=== PATIENT | male | born 1980 | race African-American/Black ===

== ENCOUNTER 2022-01-25 08:06 | Inpatient (IN) | payer MEDICAID, OTHER ==
[~2022-01-25] VITALS: Ht 167.6 cm; Wt 72.6 kg
[2022-01-25] MEDS ORDERED: SODIUM CHLORIDE 0.9% 1,000 ML IV ONE ×2 (08:30)
[2022-01-25] MEDS ORDERED: ASPIRIN 325MG EC TABLET PO ONE (08:45)
[2022-01-25 09:28] LABS: EOSINOPHILS % 1.4 % (0.0-5.0); HEMATOCRIT. 48.1 % (42.0-52.0); HEMOGLOBIN. 16.2 g/dL (14.0-18.0); LYMPHOCYTES % 25.5 % (20.0-50.0); MEAN CORPUSCULAR HEMOGLOBIN 30.4 pg (28.0-32.0); MEAN CORPUSCULAR VOLUME 90.7 fL (80.0-94.0); MEAN PLATELET VOLUME 8.4 fl (7.4-10.4); NEUTROPHILS % 66.1 % (40.0-76.0); PLATELET 254 x1000/uL (130-400); RED BLOOD CELL COUNT 5.31 mill/uL (4.7-6.1); RED CELL DISTRIBUTION WIDTH 13.8 % (11.6-14.6)
[2022-01-25 09:38] LABS: CHLORIDE 112 mEq/L (98-107)
[2022-01-25] MEDS ORDERED: HYDRALAZINE 20MG/ML VIAL IV PRN (11:15)
[2022-01-25] MEDS ORDERED: NITROGLYCERIN 0.4MG TABLET SL SL PRN (11:15)
[2022-01-25] MEDS ORDERED: FUROSEMIDE 40MG/4ML VIAL IV ONE (11:15)
[2022-01-25] MEDS ORDERED: ONDANSETRON HCL 4MG/2ML INJ IV PRN (11:15)
[2022-01-25] MEDS ORDERED: IPRATROPIUM/ALBUTEROL 0.5-3(2.5)MG/3ML NEB NEB PRN (11:15)
[2022-01-25] MEDS ORDERED: ACETAMINOPHEN 325MG TABLET PO PRN (11:15)
[2022-01-25] MEDS ORDERED: CARVEDILOL 12.5MG TABLET PO ONE (11:15)
[2022-01-25] MEDS: LISINOPRIL 20MG TABLET PO SCH (11:24)
[2022-01-25] MEDS: ENOXAPARIN 40MG/0.4ML SYR SUBCUT SCH (12:11)
[2022-01-25] MEDS ORDERED: AMLODIPINE 5MG TABLET PO SCH (12:15)
[2022-01-25] MEDS: CLONIDINE 0.1MG TABLET PO SCH ×2 (14:47→23:37)
[2022-01-25 15:13] LABS: CREATINE KINASE MB FRACTION 10.9 ng/mL (0.5-3.6)
[2022-01-25 16:07] LABS: *AMPHETAMINES SCREEN URINE PRESUMTIVE POSITIVE (NEGATIVE); CANNABINOID URINE SCREEN NEGATIVE (NEGATIVE); PHENCYCLIDINE URINE SCREEN NEGATIVE (NEGATIVE)
[2022-01-25 16:08] LABS: *BARBITURATES SCREEN URINE NEGATIVE (NEGATIVE); *BENZODIAZEPINES SCREEN URINE NEGATIVE (NEGATIVE); *COCAINE SCREEN URINE NEGATIVE (NEGATIVE); METHADONE URINE SCREEN NEGATIVE (NEGATIVE); OPIATES URINE SCREEN NEGATIVE (NEGATIVE)
[2022-01-25 16:22] LABS: CLARITY URINE CLEAR (CLEAR); COLOR URINE YELLOW (YELLOW); KETONES URINE NEGATIVE (NEGATIVE); LEUKOCYTE ESTERASE URINE NEGATIVE (NEGATIVE); NITRITE URINE NEGATIVE (NEGATIVE); OCCULT BLOOD URINE NEGATIVE (NEGATIVE); PH URINE 5.5 (4.5-8.0); PROTEIN URINE NEGATIVE (NEGATIVE); SPECIFIC GRAVITY URINE 1.021 (1.005-1.030); UROBILINOGEN URINE 0.2 E.U./dL (0.2-1.0)
[2022-01-25] MEDS: FUROSEMIDE 40MG/4ML VIAL IVP SCH (17:45)
[2022-01-25 21:45] VITALS: BP 146/105
[2022-01-25] MEDS: AMLODIPINE 5MG TABLET PO SCH (23:37)
[2022-01-26] VITALS: BP 141/81
[2022-01-26] MEDS: DOCUSATE SODIUM 250MG CAPSULE PO SCH ×3 (00:11→17:00)
[2022-01-26 01:32] LABS: CREATINE KINASE MB FRACTION 8.4 ng/mL (0.5-3.6)
[2022-01-26 04:00] VITALS: BP 159/98
[2022-01-26] MEDS: FUROSEMIDE 40MG/4ML VIAL IVP SCH ×3 (06:09→21:41)
[2022-01-26] MEDS: CLONIDINE 0.1MG TABLET PO SCH ×3 (06:09→21:41)
[2022-01-26 08:00] VITALS: BP 139/81
[2022-01-26] MEDS: LISINOPRIL 20MG TABLET PO SCH (09:23)
[2022-01-26] MEDS: ENOXAPARIN 40MG/0.4ML SYR SUBCUT SCH (09:23)
[2022-01-26] MEDS: AMLODIPINE 5MG TABLET PO SCH ×2 (09:24→20:59)
[2022-01-26] MEDS: HYDRALAZINE HCL 50MG TABLET PO SCH ×3 (09:24→21:41)
[2022-01-26 12:00] VITALS: BP 139/81
[2022-01-26 16:00] VITALS: BP 129/83
[2022-01-26 20:00] VITALS: BP 139/89
[2022-01-27] VITALS: BP 141/98
[2022-01-27 04:00] VITALS: BP 133/83
[2022-01-27] MEDS: HYDRALAZINE HCL 50MG TABLET PO SCH ×2 (05:45→14:35)
[2022-01-27] MEDS: FUROSEMIDE 40MG/4ML VIAL IVP SCH (05:46)
[2022-01-27] MEDS: CLONIDINE 0.1MG TABLET PO SCH ×2 (05:46→14:35)
[2022-01-27 07:29] LABS: BASOPHILS % 1.1 % (0.0-2.0); EOSINOPHILS % 2.5 % (0.0-5.0); HEMATOCRIT. 52.2 % (42.0-52.0); HEMOGLOBIN. 17.4 g/dL (14.0-18.0); LYMPHOCYTES % 32.4 % (20.0-50.0); MEAN CORPUSCULAR HEMOGLOBIN 30.1 pg (28.0-32.0); MEAN CORPUSCULAR VOLUME 90.5 fL (80.0-94.0); MEAN PLATELET VOLUME 8.4 fl (7.4-10.4); MONOCYTES % 7.4 % (2.0-8.0); NEUTROPHILS % 56.6 % (40.0-76.0); PLATELET 251 x1000/uL (130-400); RED BLOOD CELL COUNT 5.77 mill/uL (4.7-6.1); RED CELL DISTRIBUTION WIDTH 13.6 % (11.6-14.6)
[2022-01-27 08:00] VITALS: BP 136/91
[2022-01-27 08:20] LABS: CHLORIDE 108 mEq/L (98-107)
[2022-01-27] MEDS: DOCUSATE SODIUM 250MG CAPSULE PO SCH (08:32)
[2022-01-27] MEDS: LISINOPRIL 20MG TABLET PO SCH (08:33)
[2022-01-27] MEDS: AMLODIPINE 5MG TABLET PO SCH (08:33)
[2022-01-27] MEDS: ENOXAPARIN 40MG/0.4ML SYR SUBCUT SCH (08:33)
[2022-01-27] MEDS ORDERED: POTASSIUM CHLORIDE 20MEQ TABLET SR PO SCH (11:15)
[2022-01-27] MEDS ORDERED: FUROSEMIDE 40MG TABLET PO NR (11:15)
[2022-01-27] MEDS ORDERED: POTASSIUM CHLORIDE 20MEQ TABLET SR PO NR (11:15)
[2022-01-27 11:54] VITALS: BP 133/88
[2022-01-27] MEDS ORDERED: POTA20TA82 PO (13:43)
[2022-01-27] MEDS ORDERED: LISI40TA13 MT (13:43)
[2022-01-27] MEDS ORDERED: FURO40TA5 PO (13:43)
[2022-01-27] MEDS ORDERED: HYDR100T26 MT (13:43)
[2022-01-27 14:42] VITALS: BP 133/88
[2022-01-27] MEDS ORDERED: FUROSEMIDE 40MG TABLET PO SCH (21:00)
== END 2022-01-27 15:45 | disposition home or self-care (01) | DRG 194 ==
LOC: ER 08:48 → EDBEDREQ 11:09 → ENRESERV 20:05 → 8WST 22:57
PROVIDERS: ADMIT Internal Medicine; ATTEND Internal Medicine
DX: I11.0 Hypertensive heart disease with heart failure (principal); J96.00 Acute respiratory failure, unspecified whether with hypoxia or hypercapnia; I50.23 Acute on chronic systolic (congestive) heart failure; J44.9 Chronic obstructive pulmonary disease, unspecified; E80.6 Other disorders of bilirubin metabolism; Z20.822 Contact with and (suspected) exposure to COVID-19; E87.6 Hypokalemia; Z60.2 Problems related to living alone; F15.90 Other stimulant use, unspecified, uncomplicated; F17.210 Nicotine dependence, cigarettes, uncomplicated; Z79.899 Other long term (current) drug therapy; Z91.010 Allergy to peanuts
CPT/HCPCS: 36415; 71045; 71275; 80048; 80053; 80061; 80305; 81003; 82550; 82553; 82962; 83036; 83880; 84484; 85025; 85379; 87426; 93005; 93306; 93970; 99285; J1650; J1940; J7030

== ENCOUNTER 2022-04-17 21:36 | Inpatient (IN) | payer MEDICAID, OTHER ==
[~2022-04-17] VITALS: Ht 167.6 cm; Wt 63.7 kg
[~2022-04-17 21:36] MED LIST: FURO40TA5 PO; HYDR100T26 MT; LISI40TA13 MT; POTA-204 PO
[2022-04-18] MEDS ORDERED: FUROSEMIDE 40MG/4ML VIAL IV ONE (01:45)
[2022-04-18] MEDS ORDERED: NITROGLYCERIN OINT 1GM/INCH UDPKT TD ONE (01:45)
[2022-04-18] MEDS ORDERED: ASPIRIN 81MG TABLET PO ONE (01:45)
[2022-04-18 02:07] LABS: CHLORIDE 113 mEq/L (98-107)
[2022-04-18 02:13] LABS: EOSINOPHILS % 1.4 % (0.0-5.0); HEMATOCRIT. 44.6 % (42.0-52.0); HEMOGLOBIN. 14.6 g/dL (14.0-18.0); LYMPHOCYTES % 38.9 % (20.0-50.0); MEAN CORPUSCULAR HEMOGLOBIN 29.5 pg (28.0-32.0); MEAN CORPUSCULAR VOLUME 90.3 fL (80.0-94.0); MEAN PLATELET VOLUME 8.9 fl (7.4-10.4); MONOCYTES % 7.6 % (2.0-8.0); NEUTROPHILS % 51.1 % (40.0-76.0); PLATELET 271 x1000/uL (130-400); RED BLOOD CELL COUNT 4.94 mill/uL (4.7-6.1); RED CELL DISTRIBUTION WIDTH 15.5 % (11.6-14.6)
[2022-04-18 10:30] VITALS: BP 160/92
[2022-04-18] MEDS ORDERED: HYDROCODONE/ACETAMINOPHEN 5/325MG TABLET PO PRN (11:45)
[2022-04-18] MEDS ORDERED: ACETAMINOPHEN 325MG TABLET PO PRN ×2 (11:45)
[2022-04-18] MEDS ORDERED: LORAZEPAM 0.5MG TABLET PO PRN (11:45)
[2022-04-18] MEDS ORDERED: DOCUSATE SODIUM 100MG CAPSULE PO PRN (11:45)
[2022-04-18] MEDS ORDERED: ONDANSETRON HCL 4MG/2ML INJ IV PRN (11:45)
[2022-04-18] MEDS ORDERED: CLONIDINE 0.1MG TABLET PO PRN (11:45)
[2022-04-18] MEDS ORDERED: IPRATROPIUM/ALBUTEROL 0.5-3(2.5)MG/3ML NEB HHN PRN (11:45)
[2022-04-18 12:00] VITALS: BP 160/92
[2022-04-18] MEDS: FUROSEMIDE 40MG/4ML VIAL IVP SCH ×2 (12:11→17:29)
[2022-04-18] MEDS: ENOXAPARIN 40MG/0.4ML SYR SUBCUT SCH (12:23)
[2022-04-18] MEDS: AMLODIPINE 10MG TABLET PO SCH (13:27)
[2022-04-18] MEDS: POTASSIUM CHLORIDE 20MEQ/PACKET PO SCH (13:28)
[2022-04-18 15:34] LABS: CLARITY URINE CLEAR (CLEAR); COLOR URINE YELLOW (YELLOW); KETONES URINE NEGATIVE (NEGATIVE); LEUKOCYTE ESTERASE URINE NEGATIVE (NEGATIVE); NITRITE URINE NEGATIVE (NEGATIVE); OCCULT BLOOD URINE NEGATIVE (NEGATIVE); PROTEIN URINE NEGATIVE (NEGATIVE); SPECIFIC GRAVITY URINE 1.009 (1.005-1.030)
[2022-04-18 15:45] LABS: *AMPHETAMINES SCREEN URINE PRESUMTIVE POSITIVE (NEGATIVE); *BARBITURATES SCREEN URINE NEGATIVE (NEGATIVE); *BENZODIAZEPINES SCREEN URINE NEGATIVE (NEGATIVE); *COCAINE SCREEN URINE NEGATIVE (NEGATIVE); CANNABINOID URINE SCREEN NEGATIVE (NEGATIVE); METHADONE URINE SCREEN NEGATIVE (NEGATIVE); OPIATES URINE SCREEN NEGATIVE (NEGATIVE); PHENCYCLIDINE URINE SCREEN NEGATIVE (NEGATIVE)
[2022-04-18 15:57] VITALS: BP 159/89
[2022-04-18] MEDS ORDERED: BENZONATATE 100MG CAPSULE PO PRN (18:45)
[2022-04-18 20:00] VITALS: BP 137/90
[2022-04-19] VITALS (7 sets, daily range): BP systolic 120–148; BP diastolic 68–106
[2022-04-19 06:34] LABS: BASOPHILS % 0.9 % (0.0-2.0); EOSINOPHILS % 2.2 % (0.0-5.0); HEMATOCRIT. 43.2 % (42.0-52.0); HEMOGLOBIN. 14.5 g/dL (14.0-18.0); LYMPHOCYTES % 31.1 % (20.0-50.0); MEAN CORPUSCULAR HEMOGLOBIN 29.8 pg (28.0-32.0); MEAN CORPUSCULAR VOLUME 88.8 fL (80.0-94.0); MEAN PLATELET VOLUME 8.6 fl (7.4-10.4); MONOCYTES % 7.7 % (2.0-8.0); NEUTROPHILS % 58.1 % (40.0-76.0); PLATELET 265 x1000/uL (130-400); RED BLOOD CELL COUNT 4.86 mill/uL (4.7-6.1)
[2022-04-19 06:45] LABS: CHLORIDE 105 mEq/L (98-107)
[2022-04-19 07:04] LABS: HEPATITIS B SURFACE ANTIGEN NEGATIVE
[2022-04-19] MEDS: FUROSEMIDE 40MG/4ML VIAL IVP SCH ×2 (09:09→17:12)
[2022-04-19] MEDS: POTASSIUM CHLORIDE 20MEQ/PACKET PO SCH (09:09)
[2022-04-19] MEDS: AMLODIPINE 10MG TABLET PO SCH (09:10)
[2022-04-19] MEDS ORDERED: POTASSIUM CHLORIDE 20MEQ/PACKET PO NR (10:15)
[2022-04-19] MEDS: ENOXAPARIN 40MG/0.4ML SYR SUBCUT SCH (12:09)
[2022-04-20 04:18] VITALS: BP 121/84
[2022-04-20 08:00] VITALS: BP 129/97
[2022-04-20] MEDS: FUROSEMIDE 40MG/4ML VIAL IVP SCH (09:20)
[2022-04-20] MEDS: POTASSIUM CHLORIDE 20MEQ/PACKET PO SCH (09:20)
[2022-04-20] MEDS: AMLODIPINE 10MG TABLET PO SCH (09:21)
[2022-04-20 11:22] LABS: BASOPHILS % 1.1 % (0.0-2.0); EOSINOPHILS % 2.7 % (0.0-5.0); HEMATOCRIT. 51.1 % (42.0-52.0); HEMOGLOBIN. 17.1 g/dL (14.0-18.0); LYMPHOCYTES % 29.3 % (20.0-50.0); MEAN CORPUSCULAR HEMOGLOBIN 30.1 pg (28.0-32.0); MEAN CORPUSCULAR VOLUME 90.1 fL (80.0-94.0); MEAN PLATELET VOLUME 8.5 fl (7.4-10.4); MONOCYTES % 9.2 % (2.0-8.0); NEUTROPHILS % 57.7 % (40.0-76.0); PLATELET 308 x1000/uL (130-400); RED BLOOD CELL COUNT 5.67 mill/uL (4.7-6.1); RED CELL DISTRIBUTION WIDTH 15.4 % (11.6-14.6)
[2022-04-20 11:36] LABS: CHLORIDE 107 mEq/L (98-107)
[2022-04-20 12:00] VITALS: BP 104/84
[2022-04-20] MEDS: ENOXAPARIN 40MG/0.4ML SYR SUBCUT SCH (12:42)
[2022-04-20] MEDS ORDERED: AMLO10TA80 PO (12:57)
[2022-04-20 13:17] VITALS: BP 104/84
== END 2022-04-20 15:00 | disposition home or self-care (01) | DRG 194 ==
LOC: ER 21:36 → 6WST 04-18 06:45 → EDBEDREQ 04-18 08:06
PROVIDERS: ADMIT Internal Medicine; ATTEND Internal Medicine
DX: I11.0 Hypertensive heart disease with heart failure (principal); J96.01 Acute respiratory failure with hypoxia; E44.1 Mild protein-calorie malnutrition; E87.2 Acidosis; J68.0 Bronchitis and pneumonitis due to chemicals, gases, fumes and vapors; I50.23 Acute on chronic systolic (congestive) heart failure; Z20.822 Contact with and (suspected) exposure to COVID-19; I42.0 Dilated cardiomyopathy; F15.90 Other stimulant use, unspecified, uncomplicated; F17.200 Nicotine dependence, unspecified, uncomplicated; F19.90 Other psychoactive substance use, unspecified, uncomplicated; E78.5 Hyperlipidemia, unspecified; Z28.310 Unvaccinated for COVID-19; Z91.010 Allergy to peanuts; R74.01 Elevation of levels of liver transaminase levels; Z71.51 Drug abuse counseling and surveillance of drug abuser; Z68.22 Body mass index [BMI] 22.0-22.9, adult
CPT/HCPCS: 36415; 71045; 80048; 80053; 80076; 80305; 81003; 83605; 83880; 84443; 84484; 85025; 85379; 86705; 86709; 86803; 87340; 87426; 93005; 93970; 99291; C9803; J1650; J1940

== ENCOUNTER 2022-10-09 12:11 | Inpatient (IN) | payer MEDICAID, OTHER ==
[~2022-10-09] VITALS: Ht 167.6 cm; Wt 61.2 kg
[~2022-10-09 12:11] MED LIST changes: +AMLO10TA80 PO; -HYDR100T26 MT; -LISI40TA13 MT
[2022-10-09 13:39] LABS: BASOPHILS % 0.3 % (0.0-2.0); HEMATOCRIT. 52.3 % (42.0-52.0); HEMOGLOBIN. 17.1 g/dL (14.0-18.0); LYMPHOCYTES % 9.2 % (20.0-50.0); MEAN CORPUSCULAR VOLUME 94.7 fL (80.0-94.0); MEAN PLATELET VOLUME 9.1 fl (7.4-10.4); NEUTROPHILS % 76.5 % (40.0-76.0); PLATELET 207 x1000/uL (130-400); RED BLOOD CELL COUNT 5.52 mill/uL (4.7-6.1); RED CELL DISTRIBUTION WIDTH 14.7 % (11.6-14.6)
[2022-10-09 15:52] LABS: *AMPHETAMINES SCREEN URINE PRESUMTIVE POSITIVE (NEGATIVE); *BARBITURATES SCREEN URINE NEGATIVE (NEGATIVE); *BENZODIAZEPINES SCREEN URINE NEGATIVE (NEGATIVE); *COCAINE SCREEN URINE NEGATIVE (NEGATIVE); CANNABINOID URINE SCREEN PRESUMTIVE POSITIVE (NEGATIVE); METHADONE URINE SCREEN NEGATIVE (NEGATIVE); OPIATES URINE SCREEN NEGATIVE (NEGATIVE); PHENCYCLIDINE URINE SCREEN NEGATIVE (NEGATIVE)
[2022-10-09 15:53] LABS: CHLORIDE 102 mEq/L (98-107)
[2022-10-09 16:02] LABS: ETHANOL BLOOD < 10 mg/dL
[2022-10-09] MEDS ORDERED: FUROSEMIDE 40MG/4ML VIAL IV ONE (16:45)
[2022-10-09] MEDS ORDERED: ASPIRIN 81MG TABLET PO ONE (16:45)
[2022-10-09] MEDS ORDERED: DIPHENHYDRAMINE 50MG/ML VIAL IV PRN (17:45)
[2022-10-09] MEDS ORDERED: IPRATROPIUM/ALBUTEROL 0.5-3(2.5)MG/3ML NEB HHN PRN (17:45)
[2022-10-09] MEDS ORDERED: ONDANSETRON HCL 4MG/2ML INJ IV PRN (17:45)
[2022-10-09] MEDS ORDERED: CLONIDINE 0.1MG TABLET PO PRN (17:45)
[2022-10-09] MEDS: ACETAMINOPHEN 325MG TABLET PO PRN (21:15)
[2022-10-09 22:00] VITALS: BP 129/86
[2022-10-09] MEDS ORDERED: DEXTROSE 50% WATER 50ML SYRINGE IV PRN (23:00)
[2022-10-10] VITALS: BP 113/72
[2022-10-10 04:00] VITALS: BP 118/78
[2022-10-10] MEDS: FUROSEMIDE 40MG/4ML VIAL IV SCH (06:18)
[2022-10-10] MEDS: BLOOD SUGAR DIAGNOSTIC STRIP TEST SCH ×3 (06:34→20:50)
[2022-10-10 07:26] LABS: HEMATOCRIT. 56.3 % (42.0-52.0); HEMOGLOBIN. 18.4 g/dL (14.0-18.0); MEAN CORPUSCULAR HEMOGLOBIN 30.6 pg (28.0-32.0); MEAN CORPUSCULAR VOLUME 93.4 fL (80.0-94.0); MEAN PLATELET VOLUME 8.8 fl (7.4-10.4); PLATELET 235 x1000/uL (130-400); RED BLOOD CELL COUNT 6.03 mill/uL (4.7-6.1); RED CELL DISTRIBUTION WIDTH 14.6 % (11.6-14.6)
[2022-10-10 08:00] VITALS: BP 120/86
[2022-10-10] MEDS: INSULIN LISPRO 100 UNITS/ML SUBCUT SCH ×3 (08:10→20:50)
[2022-10-10 10:33] LABS: CHLORIDE 98 mEq/L (98-107)
[2022-10-10 12:00] VITALS: BP 147/96
[2022-10-10 16:00] VITALS: BP 149/93
[2022-10-10 17:27] LABS: CHLORIDE 97 mEq/L (98-107)
[2022-10-10 20:00] VITALS: BP 140/90
[2022-10-10] MEDS: QUETIAPINE FUMARATE 50MG TABLET PO SCH (20:31)
[2022-10-11] VITALS (7 sets, daily range): BP systolic 96–125; BP diastolic 57–86
[2022-10-11] MEDS: FUROSEMIDE 40MG/4ML VIAL IV SCH ×2 (06:09→17:02)
[2022-10-11 06:51] LABS: PLATELET ESTIMATE NORMAL
[2022-10-11] MEDS: BLOOD SUGAR DIAGNOSTIC STRIP TEST SCH ×4 (07:52→21:08)
[2022-10-11] MEDS: INSULIN LISPRO 100 UNITS/ML SUBCUT SCH ×4 (07:52→21:00)
[2022-10-11] MEDS: DILTIAZEM HCL 30MG TABLET PO SCH ×2 (13:50→21:04)
[2022-10-11] MEDS: ACETAMINOPHEN 325MG TABLET PO PRN (13:50)
[2022-10-11] MEDS: QUETIAPINE FUMARATE 50MG TABLET PO SCH (21:04)
[2022-10-12 04:00] VITALS: BP 96/60
[2022-10-12] MEDS: DILTIAZEM HCL 30MG TABLET PO SCH ×3 (05:41→22:01)
[2022-10-12] MEDS: FUROSEMIDE 40MG/4ML VIAL IV SCH (05:59)
[2022-10-12] MEDS: BLOOD SUGAR DIAGNOSTIC STRIP TEST SCH ×4 (06:51→21:00)
[2022-10-12 07:33] LABS: HEMATOCRIT. 42.8 % (42.0-52.0); HEMOGLOBIN. 14.5 g/dL (14.0-18.0); MEAN CORPUSCULAR HEMOGLOBIN 30.9 pg (28.0-32.0); MEAN PLATELET VOLUME 8.8 fl (7.4-10.4); PLATELET 344 x1000/uL (130-400); RED CELL DISTRIBUTION WIDTH 14.4 % (11.6-14.6)
[2022-10-12 07:55] LABS: CHLORIDE 99 mEq/L (98-107)
[2022-10-12] MEDS: INSULIN LISPRO 100 UNITS/ML SUBCUT SCH ×4 (07:57→21:00)
[2022-10-12 08:00] VITALS: BP 113/69
[2022-10-12 12:00] VITALS: BP 113/71
[2022-10-12 16:00] VITALS: BP 110/69
[2022-10-12] MEDS: FUROSEMIDE 40MG TABLET PO SCH (17:15)
[2022-10-12 20:00] VITALS: BP 142/79
[2022-10-12] MEDS: CARVEDILOL 3.125 MG TABLET PO SCH (22:02)
[2022-10-12] MEDS: QUETIAPINE FUMARATE 50MG TABLET PO SCH (22:02)
[2022-10-12 22:47] LABS: PLATELET ESTIMATE NORMAL
[2022-10-13] VITALS: BP 103/71
[2022-10-13 04:00] VITALS: BP 107/71
[2022-10-13 05:38] LABS: HEMATOCRIT. 42.4 % (42.0-52.0); HEMOGLOBIN. 14.2 g/dL (14.0-18.0); MEAN CORPUSCULAR HEMOGLOBIN 30.5 pg (28.0-32.0); MEAN CORPUSCULAR VOLUME 90.9 fL (80.0-94.0); PLATELET 367 x1000/uL (130-400); RED BLOOD CELL COUNT 4.67 mill/uL (4.7-6.1); RED CELL DISTRIBUTION WIDTH 14.1 % (11.6-14.6)
[2022-10-13] MEDS: DILTIAZEM HCL 30MG TABLET PO SCH ×3 (06:24→21:17)
[2022-10-13] MEDS: FUROSEMIDE 40MG TABLET PO SCH ×2 (06:24→16:38)
[2022-10-13] MEDS: BLOOD SUGAR DIAGNOSTIC STRIP TEST SCH ×4 (06:27→21:15)
[2022-10-13] MEDS: INSULIN LISPRO 100 UNITS/ML SUBCUT SCH ×4 (06:28→21:00)
[2022-10-13 08:00] VITALS: BP 101/69
[2022-10-13] MEDS: CARVEDILOL 3.125 MG TABLET PO SCH ×2 (08:56→21:18)
[2022-10-13 09:09] LABS: CHLORIDE 100 mEq/L (98-107)
[2022-10-13 12:00] VITALS: BP 110/71
[2022-10-13] MEDS ORDERED: COR3 PO (15:29)
[2022-10-13] MEDS ORDERED: QUET50TA PO (15:29)
[2022-10-13] MEDS ORDERED: FURO40TA5 PO (15:29)
[2022-10-13] MEDS ORDERED: DILT30TA38 PO (15:29)
[2022-10-13 16:00] VITALS: BP 117/70
[2022-10-13 20:00] VITALS: BP 108/68
[2022-10-13] MEDS: QUETIAPINE FUMARATE 50MG TABLET PO SCH (21:17)
[2022-10-14] VITALS: BP 101/70
[2022-10-14 04:00] VITALS: BP 131/59
[2022-10-14] MEDS: FUROSEMIDE 40MG TABLET PO SCH (06:35)
[2022-10-14] MEDS: BLOOD SUGAR DIAGNOSTIC STRIP TEST SCH ×2 (06:35→12:09)
[2022-10-14] MEDS: DILTIAZEM HCL 30MG TABLET PO SCH ×2 (06:35→14:17)
[2022-10-14] MEDS: INSULIN LISPRO 100 UNITS/ML SUBCUT SCH ×2 (06:36→12:10)
[2022-10-14 08:00] VITALS: BP 110/73
[2022-10-14] MEDS: CARVEDILOL 3.125 MG TABLET PO SCH (08:44)
[2022-10-14 10:58] LABS: PLATELET ESTIMATE NORMAL
[2022-10-14 12:00] VITALS: BP 130/42
[2022-10-14 14:29] VITALS: BP 132/92
== END 2022-10-14 15:15 | disposition home or self-care (01) | DRG 194 ==
LOC: ER 12:11 → 7WST 17:23 → EDBEDREQTM 17:25 → EDBEDREQ 17:25
PROVIDERS: ADMIT Internal Medicine; ATTEND Internal Medicine
DX: I11.0 Hypertensive heart disease with heart failure (principal); J96.00 Acute respiratory failure, unspecified whether with hypoxia or hypercapnia; E43 Unspecified severe protein-calorie malnutrition; I42.0 Dilated cardiomyopathy; I50.23 Acute on chronic systolic (congestive) heart failure; Z20.822 Contact with and (suspected) exposure to COVID-19; F17.200 Nicotine dependence, unspecified, uncomplicated; R73.9 Hyperglycemia, unspecified; F15.90 Other stimulant use, unspecified, uncomplicated; Z91.010 Allergy to peanuts; Z91.199 Patient's noncompliance with other medical treatment and regimen due to unspecified reason
CPT/HCPCS: 36415; 71045; 80048; 80053; 80305; 80320; 82962; 83036; 83880; 84484; 85025; 87426; 93005; 93306; 93970; 99285; J1940; G0480

== ENCOUNTER 2022-12-08 09:14 | Inpatient (IN) | payer MEDICAID, OTHER ==
[~2022-12-08] VITALS: Ht 160 cm; Wt 63.5 kg
[~2022-12-08 09:14] MED LIST changes: -AMLO10TA80 PO; +COR3 PO; +DILT30TA38 PO; +QUET50TA PO
[2022-12-08] MEDS ORDERED: ALBUTEROL (0.083%) 2.5MG/3ML NEB HHN STA (09:22)
[2022-12-08] MEDS ORDERED: IPRATROPIUM BROMIDE (0.02%) 0.5MG/2.5ML NEB HHN STA (09:22)
[2022-12-08] MEDS ORDERED: METHYLPREDNISOLONE SOD SUCC 125 MG/2 ML VIAL IV STA (09:22)
[2022-12-08] MEDS ORDERED: NITROGLYCERIN OINT 1GM/INCH UDPKT TD ONE (09:30)
[2022-12-08] MEDS ORDERED: ASPIRIN 81MG TABLET PO ONE (09:30)
[2022-12-08 11:26] LABS: BASOPHILS % 0.9 % (0.0-2.0); HEMATOCRIT. 57.5 % (42.0-52.0); HEMOGLOBIN. 18.9 g/dL (14.0-18.0); LYMPHOCYTES % 14.8 % (20.0-50.0); MEAN CORPUSCULAR HEMOGLOBIN 30.4 pg (28.0-32.0); MEAN CORPUSCULAR VOLUME 92.3 fL (80.0-94.0); MEAN PLATELET VOLUME 8.2 fl (7.4-10.4); MONOCYTES % 10.4 % (2.0-8.0); NEUTROPHILS % 73.9 % (40.0-76.0); PLATELET 209 x1000/uL (130-400); RED BLOOD CELL COUNT 6.23 mill/uL (4.7-6.1); RED CELL DISTRIBUTION WIDTH 15.4 % (11.6-14.6)
[2022-12-08 11:32] LABS: CHLORIDE 100 mEq/L (98-107)
[2022-12-08] MEDS ORDERED: MAGNESIUM 2 G PREMIX 50 ML IV NR (11:45)
[2022-12-08] MEDS ORDERED: CEFTRIAXONE 1 G PREMIX 50 ML IV NR (11:45)
[2022-12-08] MEDS ORDERED: AZITHROMYCIN 500MG/250ML 250 ML IV NR (11:45)
[2022-12-08] MEDS ORDERED: NITROGLYCERIN OINT 1GM/INCH UDPKT TD NR (12:00)
[2022-12-08] MEDS ORDERED: ALBUTEROL (0.083%) 2.5MG/3ML NEB HHN NR (12:00)
[2022-12-08] MEDS ORDERED: ASPIRIN 81MG TABLET PO NR (12:00)
[2022-12-08] MEDS ORDERED: METHYLPREDNISOLONE SOD SUCC 125 MG/2 ML VIAL IV NR (12:00)
[2022-12-08] MEDS ORDERED: IPRATROPIUM BROMIDE (0.02%) 0.5MG/2.5ML NEB HHN NR (12:00)
[2022-12-08] MEDS ORDERED: FUROSEMIDE 40MG/4ML VIAL IVP NR (12:15)
[2022-12-08] MEDS ORDERED: HYDROCODONE/ACETAMINOPHEN 5/325MG TABLET PO PRN (15:45)
[2022-12-08] MEDS ORDERED: CEFTRIAXONE 1 G PREMIX 50 ML IV SCH (15:45)
[2022-12-08] MEDS ORDERED: IPRATROPIUM/ALBUTEROL 0.5-3(2.5)MG/3ML NEB HHN PRN (15:45)
[2022-12-08] MEDS ORDERED: DOCUSATE SODIUM 100MG CAPSULE PO PRN (15:45)
[2022-12-08] MEDS ORDERED: ACETAMINOPHEN 325MG TABLET PO PRN ×2 (15:45)
[2022-12-08] MEDS ORDERED: BENZONATATE 100MG CAPSULE PO PRN (15:45)
[2022-12-08] MEDS ORDERED: CLONIDINE 0.1MG TABLET PO PRN (15:45)
[2022-12-08] MEDS ORDERED: ONDANSETRON HCL 4MG/2ML INJ IV PRN (15:45)
[2022-12-08] MEDS ORDERED: LORAZEPAM 0.5MG TABLET PO PRN (15:45)
[2022-12-08 16:00] VITALS: BP 124/89
[2022-12-08] MEDS ORDERED: NALOXONE HCL 0.4MG/ML VIAL IV PRN (16:00)
[2022-12-08] MEDS ORDERED: IPRATROPIUM BROMIDE (0.02%) 0.5MG/2.5ML NEB HHN PRN (16:00)
[2022-12-08] MEDS ORDERED: ALBUTEROL (0.083%) 2.5MG/3ML NEB HHN PRN (16:00)
[2022-12-08] MEDS: ENOXAPARIN 40MG/0.4ML SYR SUBCUT SCH (17:21)
[2022-12-08 20:00] VITALS: BP 111/72
[2022-12-08] MEDS: GUAIFENESIN 600MG ER TABLET PO SCH (20:32)
[2022-12-09] VITALS: BP 142/94
[2022-12-09 04:00] VITALS: BP 141/98
[2022-12-09 06:45] LABS: BASOPHILS % 0.4 % (0.0-2.0); HEMOGLOBIN. 15.2 g/dL (14.0-18.0); LYMPHOCYTES % 16.1 % (20.0-50.0); MEAN CORPUSCULAR HEMOGLOBIN 30.9 pg (28.0-32.0); MEAN CORPUSCULAR VOLUME 91.2 fL (80.0-94.0); MEAN PLATELET VOLUME 8.9 fl (7.4-10.4); NEUTROPHILS % 77.5 % (40.0-76.0); PLATELET 193 x1000/uL (130-400); RED BLOOD CELL COUNT 4.93 mill/uL (4.7-6.1); RED CELL DISTRIBUTION WIDTH 14.9 % (11.6-14.6)
[2022-12-09 08:00] VITALS: BP 127/89
[2022-12-09] MEDS: GUAIFENESIN 600MG ER TABLET PO SCH ×2 (08:48→21:50)
[2022-12-09] MEDS ORDERED: DEXAMETHASONE 10 MG/ML VIAL IV SCH (09:00)
[2022-12-09] MEDS ORDERED: ASPI-1406 MT (11:12)
[2022-12-09] MEDS ORDERED: DEXA6TAB MT (11:12)
[2022-12-09] MEDS ORDERED: AZIT500T8 MT (11:12)
[2022-12-09] MEDS ORDERED: PANT40TA51 MT (11:12)
[2022-12-09] MEDS ORDERED: ALBU18HF2 IH (11:12)
[2022-12-09 12:00] VITALS: BP 124/93
[2022-12-09] MEDS ORDERED: CEFTRIAXONE 1,000 MG in DEXTROSE 5% WATER 50 ML IV SCH (13:00)
[2022-12-09] MEDS ORDERED: AZITHROMYCIN 500 MG in DEXT 5% WATER 250 ML IV SCH (14:00)
[2022-12-09 15:27] LABS: *AMPHETAMINES SCREEN URINE PRESUMTIVE POSITIVE (NEGATIVE); *BARBITURATES SCREEN URINE NEGATIVE (NEGATIVE); *BENZODIAZEPINES SCREEN URINE NEGATIVE (NEGATIVE); *COCAINE SCREEN URINE NEGATIVE (NEGATIVE); CANNABINOID URINE SCREEN PRESUMTIVE POSITIVE (NEGATIVE); METHADONE URINE SCREEN NEGATIVE (NEGATIVE); OPIATES URINE SCREEN NEGATIVE (NEGATIVE); PHENCYCLIDINE URINE SCREEN PRESUMTIVE POSITIVE (NEGATIVE)
[2022-12-09 15:39] LABS: CHLORIDE 101 mEq/L (98-107)
[2022-12-09 16:00] VITALS: BP 131/98
[2022-12-09] MEDS: ENOXAPARIN 40MG/0.4ML SYR SUBCUT SCH (18:00)
[2022-12-09] MEDS ORDERED: DIPHENHYDRAMINE 25MG CAPSULE PO PRN (18:00)
[2022-12-09 20:00] VITALS: BP 140/93
[2022-12-10] VITALS: BP 138/104
[2022-12-10 04:00] VITALS: BP 144/102
[2022-12-10 08:00] VITALS: BP 124/79
[2022-12-10] MEDS: GUAIFENESIN 600MG ER TABLET PO SCH (08:25)
[2022-12-10 09:22] VITALS: BP 126/86
[2022-12-10 12:00] VITALS: BP 116/89
== END 2022-12-10 13:50 | disposition home or self-care (01) | DRG 137 ==
LOC: ER 09:21 → EDBEDREQTM 12:18 → EDBEDREQ 12:18 → 7EST 13:42 → EDBEDREQTM 13:44 → EDBEDREQ 13:44 → ENRESERV 13:48
PROVIDERS: ADMIT Internal Medicine; ATTEND Internal Medicine
DX: U07.1 COVID-19 (principal); J96.00 Acute respiratory failure, unspecified whether with hypoxia or hypercapnia; J12.82 Pneumonia due to coronavirus disease 2019; E87.20 Acidosis, unspecified; I42.0 Dilated cardiomyopathy; I50.9 Heart failure, unspecified; I11.0 Hypertensive heart disease with heart failure; F17.200 Nicotine dependence, unspecified, uncomplicated; R07.9 Chest pain, unspecified; J45.909 Unspecified asthma, uncomplicated; Z91.010 Allergy to peanuts; F15.90 Other stimulant use, unspecified, uncomplicated
CPT/HCPCS: 36415; 71045; 80048; 80053; 80305; 83605; 83880; 84484; 85025; 85379; 87426; 87804; 93005; 93970; 94640; 99291; C9803; J0456; J0696; J1100; J1650; J1940; J2930; J3475; J7060; Q0163

== ENCOUNTER 2023-02-24 15:31 | Emergency (ER) | payer MEDICAID ==
[~2023-02-24] VITALS: Ht 167.6 cm; Wt 66.0 kg
[~2023-02-24 15:31] MED LIST changes: +ALBU18HF2 IH; +ASPI-1406 MT; +AZIT500T8 MT; +DEXA6TAB MT; +DILT30TA37 PO; -DILT30TA38 PO; +PANT40TA51 MT
[2023-02-24 15:42] VITALS: BP 145/115
[2023-02-24 19:46] LABS: BASOPHILS % 1.1 % (0.0-2.0); HEMATOCRIT. 45.8 % (42.0-52.0); HEMOGLOBIN. 15.1 g/dL (14.0-18.0); LYMPHOCYTES % 41.8 % (20.0-50.0); MEAN CORPUSCULAR HEMOGLOBIN 30.4 pg (28.0-32.0); MEAN CORPUSCULAR VOLUME 92.1 fL (80.0-94.0); MEAN PLATELET VOLUME 8.6 fl (7.4-10.4); MONOCYTES % 8.5 % (2.0-8.0); NEUTROPHILS % 45.6 % (40.0-76.0); PLATELET 220 x1000/uL (130-400); RED BLOOD CELL COUNT 4.97 mill/uL (4.7-6.1); RED CELL DISTRIBUTION WIDTH 15.5 % (11.6-14.6)
[2023-02-24 19:57] LABS: CHLORIDE 109 mEq/L (98-107)
[2023-02-24] MEDS ORDERED: ASPI-1406 MT (23:32)
[2023-02-24] MEDS ORDERED: ALBU18HF2 IH (23:32)
[2023-02-24] MEDS ORDERED: FURO40TA5 PO (23:32)
[2023-02-24] MEDS ORDERED: COR3 PO (23:32)
== END 2023-02-24 23:57 | disposition home or self-care (01) ==
LOC: ER 15:31
DX: R06.02 Shortness of breath (principal); I11.0 Hypertensive heart disease with heart failure; I50.9 Heart failure, unspecified; Z91.010 Allergy to peanuts; Z91.011 Allergy to milk products; Z98.890 Other specified postprocedural states
CPT/HCPCS: 36415; 71045; 80053; 85025; 99284

== ENCOUNTER 2023-03-17 21:28 | Inpatient (IN) | payer MEDICAID, OTHER ==
[~2023-03-17] VITALS: Ht 167.6 cm; Wt 69.9 kg
[2023-03-17] MEDS ORDERED: ASPIRIN 81MG TABLET PO ONE (22:30)
[2023-03-17] MEDS ORDERED: NITROGLYCERIN OINT 1GM/INCH UDPKT TD ONE (22:30)
[2023-03-17] MEDS ORDERED: FUROSEMIDE 40MG/4ML VIAL IV ONE (22:30)
[2023-03-17 23:10] LABS: BASOPHILS % 0.9 % (0.0-2.0); EOSINOPHILS % 0.6 % (0.0-5.0); HEMATOCRIT. 43.6 % (42.0-52.0); HEMOGLOBIN. 14.5 g/dL (14.0-18.0); MEAN CORPUSCULAR HEMOGLOBIN 30.3 pg (28.0-32.0); MEAN CORPUSCULAR VOLUME 91.4 fL (80.0-94.0); MEAN PLATELET VOLUME 7.7 fl (7.4-10.4); MONOCYTES % 7.3 % (2.0-8.0); NEUTROPHILS % 61.2 % (40.0-76.0); PLATELET 254 x1000/uL (130-400); RED BLOOD CELL COUNT 4.77 mill/uL (4.7-6.1); RED CELL DISTRIBUTION WIDTH 15.5 % (11.6-14.6)
[2023-03-17 23:20] LABS: CHLORIDE 108 mEq/L (98-107)
[2023-03-18 04:55] VITALS: BP 133/99
[2023-03-18] MEDS ORDERED: *PATIENT'S OWN MEDICATION STORAGE XX SCH (07:15)
[2023-03-18 08:00] VITALS: BP 132/74
[2023-03-18] MEDS ORDERED: IPRATROPIUM/ALBUTEROL 0.5-3(2.5)MG/3ML NEB HHN SCH (08:00)
[2023-03-18] MEDS ORDERED: CARVEDILOL 3.125 MG TABLET PO SCH (09:00)
[2023-03-18] MEDS ORDERED: ENOXAPARIN 40MG/0.4ML SYR SUBCUT SCH ×2 (09:00→12:45)
[2023-03-18] MEDS: LOSARTAN POTASSIUM 50 MG TABLET PO SCH (09:07)
[2023-03-18] MEDS: ASPIRIN 81MG TABLET PO SCH (09:07)
[2023-03-18] MEDS: FUROSEMIDE 40MG/4ML VIAL IVP SCH ×2 (09:36→21:56)
[2023-03-18] MEDS ORDERED: AMLODIPINE 5MG TABLET PO SCH (11:00)
[2023-03-18 12:00] VITALS: BP 130/82
[2023-03-18] MEDS ORDERED: IPRATROPIUM/ALBUTEROL 0.5-3(2.5)MG/3ML NEB HHN PRN (12:30)
[2023-03-18] MEDS ORDERED: ONDANSETRON HCL 4MG/2ML INJ IV PRN (12:45)
[2023-03-18] MEDS ORDERED: CLONIDINE 0.1MG TABLET PO PRN (12:45)
[2023-03-18] MEDS ORDERED: ACETAMINOPHEN 325MG TABLET PO PRN (12:45)
[2023-03-18] MEDS: HYDRALAZINE HCL 50MG TABLET PO SCH ×2 (14:52→21:57)
[2023-03-18] MEDS: DILTIAZEM HCL 30MG TABLET PO SCH ×2 (14:52→21:58)
[2023-03-18 16:00] VITALS: BP 127/81
[2023-03-18] MEDS: APIXABAN 5 MG TABLET PO SCH (17:12)
[2023-03-18] MEDS: POTASSIUM CHLORIDE 20MEQ TABLET SR PO SCH (17:12)
[2023-03-18 20:00] VITALS: BP 126/94
[2023-03-18 20:04] LABS: CLARITY URINE CLOUDY (CLEAR); COLOR URINE YELLOW (YELLOW); KETONES URINE NEGATIVE (NEGATIVE); LEUKOCYTE ESTERASE URINE NEGATIVE (NEGATIVE); NITRITE URINE NEGATIVE (NEGATIVE); OCCULT BLOOD URINE NEGATIVE (NEGATIVE); PH URINE 5.5 (4.5-8.0); PROTEIN URINE 2+ (NEGATIVE); SPECIFIC GRAVITY URINE 1.017 (1.005-1.030)
[2023-03-18 20:31] LABS: *AMPHETAMINES SCREEN URINE PRESUMTIVE POSITIVE (NEGATIVE); *BARBITURATES SCREEN URINE NEGATIVE (NEGATIVE); *BENZODIAZEPINES SCREEN URINE NEGATIVE (NEGATIVE); *COCAINE SCREEN URINE NEGATIVE (NEGATIVE); CANNABINOID URINE SCREEN NEGATIVE (NEGATIVE); METHADONE URINE SCREEN NEGATIVE (NEGATIVE); OPIATES URINE SCREEN NEGATIVE (NEGATIVE); PHENCYCLIDINE URINE SCREEN NEGATIVE (NEGATIVE)
[2023-03-18] MEDS: QUETIAPINE FUMARATE 50MG TABLET PO SCH (21:56)
[2023-03-19] VITALS: BP 113/68
[2023-03-19 04:00] VITALS: BP 112/86
[2023-03-19 04:43] LABS: EOSINOPHILS % 0.5 % (0.0-5.0); HEMATOCRIT. 41.2 % (42.0-52.0); HEMOGLOBIN. 13.7 g/dL (14.0-18.0); LYMPHOCYTES % 29.8 % (20.0-50.0); MEAN CORPUSCULAR HEMOGLOBIN 30.5 pg (28.0-32.0); MEAN CORPUSCULAR VOLUME 91.8 fL (80.0-94.0); MEAN PLATELET VOLUME 7.9 fl (7.4-10.4); MONOCYTES % 6.2 % (2.0-8.0); NEUTROPHILS % 62.5 % (40.0-76.0); PLATELET 233 x1000/uL (130-400); RED BLOOD CELL COUNT 4.49 mill/uL (4.7-6.1); RED CELL DISTRIBUTION WIDTH 15.4 % (11.6-14.6)
[2023-03-19 04:59] LABS: CHLORIDE 109 mEq/L (98-107)
[2023-03-19 05:08] LABS: CREATINE KINASE 491 IU/L (39-308); CREATINE KINASE MB FRACTION 6.7 ng/mL (0.5-3.6)
[2023-03-19] MEDS: HYDRALAZINE HCL 50MG TABLET PO SCH ×3 (05:20→21:25)
[2023-03-19] MEDS: DILTIAZEM HCL 30MG TABLET PO SCH ×3 (05:21→21:26)
[2023-03-19 07:56] VITALS: BP 123/87
[2023-03-19 08:37] LABS: BG BASE EXCESS 0.8 mmol/L (-2.0-2.0); BG DEOXYHEMOGLOBIN 6.8 % (0.0-5.0); BG FRACTION INSPIRED OXYGEN 21; BG HCO3 ACT 23.2 mmol/L (22.0-26.0); BG METHEMOGLOBIN 0.2 % (0.0-1.5); BG OXYGEN SATURATION 93.1 % (92.0-98.5); BG PCO2 31.2 mmHg (35.0-45.0); BG PO2 65.9 mmHg (75.0-100.0); BG SAMPLE SITE RIGHT RADIAL; BG TOTAL HEMOGLOBIN 14.7 g/dL (12.0-18.0); BG VENT MODE ROOM AIR
[2023-03-19] MEDS: POTASSIUM CHLORIDE 20MEQ TABLET SR PO SCH ×2 (08:58→17:32)
[2023-03-19] MEDS: LOSARTAN POTASSIUM 50 MG TABLET PO SCH (08:58)
[2023-03-19] MEDS: APIXABAN 5 MG TABLET PO SCH ×2 (08:58→17:32)
[2023-03-19] MEDS: ASPIRIN 81MG TABLET PO SCH (08:58)
[2023-03-19] MEDS: FUROSEMIDE 40MG/4ML VIAL IVP SCH ×2 (09:50→21:19)
[2023-03-19 11:33] VITALS: BP 126/90
[2023-03-19 15:59] VITALS: BP 129/98
[2023-03-19 20:00] VITALS: BP 134/100
[2023-03-19] MEDS: QUETIAPINE FUMARATE 50MG TABLET PO SCH (21:00)
[2023-03-20] VITALS: BP 100/65
[2023-03-20 04:00] VITALS: BP 139/98
[2023-03-20] MEDS: DILTIAZEM HCL 30MG TABLET PO SCH ×3 (05:36→21:00)
[2023-03-20] MEDS: HYDRALAZINE HCL 50MG TABLET PO SCH ×3 (05:37→21:00)
[2023-03-20 07:05] LABS: BASOPHILS % 0.8 % (0.0-2.0); EOSINOPHILS % 0.8 % (0.0-5.0); HEMATOCRIT. 40.8 % (42.0-52.0); HEMOGLOBIN. 13.4 g/dL (14.0-18.0); LYMPHOCYTES % 32.3 % (20.0-50.0); MEAN CORPUSCULAR HEMOGLOBIN 30.2 pg (28.0-32.0); MONOCYTES % 5.9 % (2.0-8.0); NEUTROPHILS % 60.2 % (40.0-76.0); PLATELET 242 x1000/uL (130-400); RED BLOOD CELL COUNT 4.43 mill/uL (4.7-6.1); RED CELL DISTRIBUTION WIDTH 15.7 % (11.6-14.6)
[2023-03-20 07:13] LABS: CHLORIDE 108 mEq/L (98-107)
[2023-03-20 08:00] VITALS: BP 133/86
[2023-03-20] MEDS: APIXABAN 5 MG TABLET PO SCH ×2 (09:50→17:08)
[2023-03-20] MEDS: FUROSEMIDE 40MG/4ML VIAL IVP SCH ×2 (09:50→20:58)
[2023-03-20] MEDS: ASPIRIN 81MG TABLET PO SCH (09:50)
[2023-03-20] MEDS: POTASSIUM CHLORIDE 20MEQ TABLET SR PO SCH ×2 (09:50→17:08)
[2023-03-20] MEDS: LOSARTAN POTASSIUM 50 MG TABLET PO SCH (09:53)
[2023-03-20 12:00] VITALS: BP_SYST 130; BP_SYST 139; BP_DIAS 104; BP_DIAS 87
[2023-03-20 16:00] VITALS: BP 117/76
[2023-03-20 20:00] VITALS: BP 124/84
[2023-03-20] MEDS: QUETIAPINE FUMARATE 50MG TABLET PO SCH (21:00)
[2023-03-21] VITALS: BP 117/73
[2023-03-21 04:00] VITALS: BP 129/85
[2023-03-21] MEDS: HYDRALAZINE HCL 50MG TABLET PO SCH ×2 (05:54→14:00)
[2023-03-21] MEDS: DILTIAZEM HCL 30MG TABLET PO SCH ×2 (05:54→14:00)
[2023-03-21 08:00] VITALS: BP 132/81
[2023-03-21] MEDS: ASPIRIN 81MG TABLET PO SCH (09:24)
[2023-03-21] MEDS: LOSARTAN POTASSIUM 50 MG TABLET PO SCH (09:24)
[2023-03-21] MEDS: FUROSEMIDE 40MG/4ML VIAL IVP SCH (09:24)
[2023-03-21] MEDS: POTASSIUM CHLORIDE 20MEQ TABLET SR PO SCH ×2 (09:24→17:00)
[2023-03-21] MEDS: APIXABAN 5 MG TABLET PO SCH ×2 (09:24→17:00)
[2023-03-21] MEDS ORDERED: LOSA50TA41 MT (11:57)
[2023-03-21] MEDS ORDERED: FURO-151 MT (11:57)
[2023-03-21] MEDS ORDERED: APIX5TAB PO (11:57)
[2023-03-21] MEDS ORDERED: POTA-204 PO (11:57)
[2023-03-21] MEDS ORDERED: CARV25TA47 MT (11:57)
[2023-03-21 12:00] VITALS: BP 121/67
[2023-03-21 15:03] VITALS: BP 121/67
== END 2023-03-21 17:44 | disposition home or self-care (01) | DRG 194 ==
LOC: ER 21:28 → MICUSO 03-18 00:14 → 7WST 03-18 04:57
PROVIDERS: ADMIT Internal Medicine; ATTEND Internal Medicine
DX: I13.0 Hypertensive heart and chronic kidney disease with heart failure and stage 1 through stage 4 chronic kidney disease, or unspecified chronic kidney disease (principal); J96.01 Acute respiratory failure with hypoxia; I26.99 Other pulmonary embolism without acute cor pulmonale; G92.8 Other toxic encephalopathy; E44.1 Mild protein-calorie malnutrition; N17.9 Acute kidney failure, unspecified; J68.0 Bronchitis and pneumonitis due to chemicals, gases, fumes and vapors; K76.1 Chronic passive congestion of liver; Z68.24 Body mass index [BMI] 24.0-24.9, adult; I50.23 Acute on chronic systolic (congestive) heart failure; N18.9 Chronic kidney disease, unspecified; F14.90 Cocaine use, unspecified, uncomplicated; E78.5 Hyperlipidemia, unspecified; F17.200 Nicotine dependence, unspecified, uncomplicated; Z79.01 Long term (current) use of anticoagulants; Z79.899 Other long term (current) drug therapy
CPT/HCPCS: 36415; 36600; 71045; 80048; 80053; 80305; 81003; 82375; 82550; 82553; 82805; 83880; 84484; 85025; 85379; 93005; 93306; 93970; 94640; 99285; J1650; J1940